=== PATIENT | female | born 1955 | race Caucasian/White ===

== ENCOUNTER → 2022-03-23 10:15 | Outpatient (CLI) | payer MEDICARE, SELFPAY ==
--- NOTE | 2022-03-23 10:19 | US_ITS ---
FINAL REPORT CLINICAL HISTORY: DYSPHAGIA,UNSPECIFIED FINDINGS: THYROID ULTRASOUND The right lobe of the thyroid measures 5.0 x 2.3 x 1.5 cm. The left lobe of the thyroid measures 4.4 x 1.9 x 1.2 cm. The parenchyma shows normal echogenicity. In the right lobe of the thyroid is a cystic, 3 x 3 x 2 mm TI-RADS 1 nodule. There is a 4 x 3 x 3 solid hypoechoic TI-RADS 4 nodule in the right lobe. In the left lobe is a 2 mm cystic nodule consistent with a TI-RADS 1. IMPRESSION: Small bilateral nodules. No follow-up recommended based on size criteria. Reviewed, Interpreted and Dictated by Dov Medina III, MD Transcribed by Ho Taylor Authenticated and [facility]
== END ==
PROVIDERS: PCP Nurse Practitioner; Visit Provider Nurse Practitioner
DX: R13.10 Dysphagia, unspecified (principal); G47.30 Sleep apnea, unspecified
CPT/HCPCS: 76536; 94762

== ENCOUNTER → 2022-03-24 09:17 | Outpatient (CLI) | payer MEDICARE, SELFPAY ==
[2022-03-24 09:35] LABS: Basophils # 0.1 K/mm3 (0-0.2); Basophils % 1.1 % (0.1-2.0); Eosinophils # 0.3 K/mm3 (0.0-0.4); Eosinophils % 3.9 % (0.1-12.0); Hematocrit 40.2 % (37.0-47.0); Hemoglobin 13.5 g/dL (12.2-16.2); Lymphocytes # 2.8 K/mm3 (0.7-4.5); Mean Corpuscular HGB Conc 33.6 g/dL (31.8-35.4); Mean Corpuscular Hemoglobin 31.9 pg (27.0-31.2); Mean Corpuscular Volume 94.9 fl (81-99); Mean Platelet Volume 6.6 fl (7.4-10.4); Monocytes # 0.6 K/mm3 (0.1-1.0); Monocytes % 7.8 % (1.7-9.3); Neutrophils # 4.2 K/mm3 (1.8-7.8); Neutrophils % 52.3 % (37.0-80.0); Platelet Count 318 K/mm3 (142-424); Red Blood Count 4.24 M/mm3 (4.20-5.40); Red Cell Distribution Width 12.3 % (11.5-17.5); White Blood Count 8.1 K/mm3 (4.8-10.8)
[2022-03-24 10:42] LABS: Alanine Aminotransferase 19 U/L (12-78); Albumin Level 3.7 g/dl (3.5-5.0); Albumin/Globulin Ratio 1.2 (1.1-1.8); Alkaline Phosphatase 104 U/L (38-126); Anion Gap 10.1 mEq/L (5-15); Aspartate Amino Transferase 27 U/L (14-36); Bilirubin,Total 0.2 mg/dl (0.2-1.3); Blood Urea Nitrogen 12 mg/dl (7-17); Calcium 9.4 mg/dl (8.4-10.2); Carbon Dioxide 27 mmol/L (22.0-30.0); Chloride 105 mmol/L (98-107); Chol/HDL Ratio 2.8 (1-3.5); Cholesterol 131 mg/dl (140-200); Estimated Glomerular Filt Rate 72 ml/min (>60); GFR (African American) 87 ML/MIN (>60); Globulin 3.1 g/dL (1.3-3.2); Glucose 98 mg/dl (74-100); HDL Cholesterol 47 mg/dl (40-60); Potassium 4.1 mmoL/L (3.5-5.1); Sodium 138 mmol/L (136-145); Total Protein,Serum 6.8 g/dl (6.3-8.2); Triglycerides 70 mg/dl (30-150); VLDL Cholesterol 14 mg/dL (0-40)
[2022-03-24 10:52] LABS: Direct LDL Cholesterol 68.14 mg/dL (100-129)
[2022-03-24 11:12] LABS: Thyroid Stimulating Hormone 1.73 uIU/mL (0.465-4.68)
[2022-03-24 11:48] LABS: Vitamin B12 370 pg/mL (239-931)
[2022-03-24 11:51] LABS: Folate > 20.00 ng/mL
[2022-03-25 14:15] LABS: Anti-Centromere B Antibodies <0.2 AI (0.0-0.9); Anti-DNA (DS) Ab Qn <1 IU/mL (0-9); Anti-Jo-1 <0.2 AI (0.0-0.9); Anti-Smith Antibody 0.3 AI (0.0-0.9); Antichromatin Antibodies <0.2 AI (0.0-0.9); Antiscleroderma-70 Antibodies <0.2 AI (0.0-0.9); RNP Antibodies <0.2 AI (0.0-0.9); Sjogren's Anti-SS-A 0.4 AI (0.0-0.9); Sjogren's Anti-SS-B <0.2 AI (0.0-0.9)
== END ==
PROVIDERS: PCP Nurse Practitioner; Visit Provider Specialist
DX: G47.30 Sleep apnea, unspecified (principal); G96.9 Disorder of central nervous system, unspecified; R07.9 Chest pain, unspecified; R25.1 Tremor, unspecified; Z68.32 Body mass index [BMI] 32.0-32.9, adult; Z72.0 Tobacco use
CPT/HCPCS: 36415; 80053; 80061; 82607; 82746; 84443; 85025; 86225; 86235

== ENCOUNTER → 2022-04-02 10:18 | Outpatient (CLI) | payer MEDICARE, SELFPAY ==
[2022-04-02 12:23] LABS: NT Pro Brain Natriuretic Pep. 171 pg/mL (0-125)
== END ==
PROVIDERS: PCP Nurse Practitioner; Visit Provider Internal Medicine Cardiovascular Disease
DX: R06.00 Dyspnea, unspecified (principal)
CPT/HCPCS: 36415; 83880

== ENCOUNTER → 2022-04-06 10:22 | Outpatient (CLI) | payer MEDICARE, SELFPAY | PROVIDERS: PCP Nurse Practitioner; Visit Provider Specialist | DX: R06.09 Other forms of dyspnea (principal) | CPT/HCPCS: 94762 ==

== ENCOUNTER → 2022-04-08 06:48 | Outpatient (CLI) | payer MEDICARE, SELFPAY ==
--- NOTE | 2022-04-08 06:49 | CA_ITS ---
APPROVED REPORT EXAM: Comprehensive 2D, Doppler, and color-flow Echocardiogram Manager Diversity: Seda Salazar RT(R) Ht: 5 ft 4 in Wt: 189lbs BSA: 1.91 BP: 167/101 mmHg Indications: CP, smoker, edema, SOB, FERREIRA, dizziness, ABN EKG 2D Dimensions LVOT 2.24 cm (M/F) 1.5-2.5 M-Mode Dimensions RVDd 2.39 cm (0.9-2.6) LA Diam 3.09 cm (1.9-4.0) LVDd 3.98 cm (3.5-5.7) Ao Diam 3.32 cm (2.0-3.7) LVDs 2.92 cm (3.5-5.7) IVSd 1.02 cm (0.6-1.1) PWd 0.99 cm (0.6-1.1) EF (Teich) 52.60% FS 26.60% EDV (Teich) 69.20 mL ESV (Teich) 32.80 mL LV Diastology E Decel Time 170.00 (160-240 msec) E/A Ratio 0.87 MED E' 6.50 (< 7 cm/sec) E'/MED E' Ratio 9.49 (>14) Mitral Valve MV E Max Al. 62.00 (40-130 cm/s) MV A Velocity 71.00 (40-130 cm/s) E/A Ratio 0.87 MV Decel. Time 170.00 (160-240 ms) MV PHT 50.00 ms Left Ventricle Left atrium is mildly enlarged, left ventricle is normal size, mild concentric left ventricular hypertrophy, estimated ejection fraction 55% with no regional wall motion abnormality, grade 1 diastolic dysfunction seen without tissue Doppler evidence of raise left atrial pressure. Right Ventricle Right atrium and right ventricle are mildly enlarged with normal contractility. Aortic Valve Aortic valve is grossly normal, there is no aortic stenosis or aortic insufficiency. Mitral Valve Mitral valve is grossly normal, there is trace mitral regurgitation. Tricuspid Valve Tricuspid grossly normal, there is trace tricuspid regurgitation, tricuspid regurgitation jet velocity is inadequate for calculation of the right ventricular systolic pressure. Pulmonic Valve Pulmonic valve is poorly visualized. Great Vessels Aortic root is normal size. Inferior vena cava is poorly visualized. Pericardium No significant pericardial effusion noted. Conclusion 1. Technically difficult study because of the patient factors and poor acoustic windows. 2. Mild biatrial enlargement, normal left ventricular size, mild concentric left ventricular hypertrophy, estimated ejection fraction 55% with no regional wall motion abnormality, grade 1 diastolic dysfunction seen without tissue Doppler evidence of reduced left atrial pressure. 3. Mildly enlarged right ventricle with normal contractility. 4. Trace mitral and tricuspid regurgitation. 5. No significant pericardial effusion noted. 6. Inferior vena cava is poorly visualized. Electronically signed by : Ivan Murrieta MD 04/09/2022 14:16:47
--- NOTE | 2022-04-08 06:49 | NM_ITS ---
APPROVED REPORT Exam: Nuclear Stress Test Indication: chest pain..short of breath..fatigue Patient Location: Outpatient Stress Tech: Rebecca Campos [place] Tech:ARNOLD Ansari RT(R)(N) Ht: 5 ft 4 in Wt: 189 lbs Bra Size: 38c HR: 72 bpm BP: 154/93 mmHg BSA: 1.91 m2 TID: 1.14 BMI: 32.4 History: chest pain..short of breath..fatigue Procedure: Patient received a 0.4 mg of intravenous Lexiscan, resting heart rate 72 bpm, resting blood pressure 154/93 mmHg, with Lexiscan maximum heart rate achived was 109 bpm which is Less than 85 85 % of the maximum predicted heart rate and blood pressure was 170/94 mmHg. With Lexiscan, patient denied any complaint of chest pain. Electrocardiogram Resting electrocardiogram shows sinus rhythm nonspecific ST-T changes, with Lexiscan there is less than 1.[address] segment depression noted from the baseline EKG. The EKG portion of the Lexiscan is nondiagnostic. Cardiac Stress and Resting SPECT Images: Cardiac Stress and Resting SPECT images were obtained using technetium 99m Myoview 32.8 mCi stress and 10.03 mCi at rest. Gated SPECT analysis of segmental wall motion and calculation of the ejection fraction also done. Prone images were also obtained. Cardiac stress and rest SPECT images show uniform myocardial activity without segmental perfusion abnormality, computer derived ejection fraction is 64% with no regional wall motion abnormality, right ventricle is normal size and contractility. Conclusion: 1. The EKG portion of the Lexiscan is nondiagnostic. 2. No scintigraphic evidence of reversible ischemia seen, computer derived ejection fraction 64% with no regional wall motion abnormality, right ventricle is normal size and contractility. 3. Normal Lexiscan Myoview study. Electronically signed by : Ivan Murrieta MD 04/09/2022 14:30:00
--- NOTE | 2022-04-08 06:49 | CA_ITS ---
APPROVED REPORT Exam: Pharmacologic Technologist: Rebecca Yang, Ht: 5 ft 4 in Wt: 189 lbs BSA: 1.91 m2 HR: 74 bpm BP: 154/93 mmHg Medical History Medications: Ropinirole,,,,, Imdur,,,,, RoSUVASTATIN,,,,, Hydroxyzine pamoate,,,,, Hydroxychlorine,,,,, Stress Test Details Test: LEXISCAN Reason for pharmacologic stress test: physical limitation. HR Resting HR: 72 bpm Max Heart Rate (APMHR): 154.321159 bpm Max HR Achieved: 109 bpm Target HR (85% APMHR): 130.179580 bpm % of APMHR: 70.78 Recovery HR: 95 bpm BP Resting BP: 154/93 mmHg Max BP: 170/94 mmHg Recovery BP: 143.0/94.0 mmHg ECG Resting ECG: NSR, NS ST abns Clinical Exercise duration: 04:00 min Highest Stage Achieved: Exercise capacity: 1.0 METs Stress ECG Conclusion Symptoms: Mild SOA, stomach discomfort. No CP. Arrhythmias/Ectopy: None ST-T Changes: Mild exaggeration of baseline abns. Conclusion: Non-diagnostic Lexiscan stress. Myoview images reported separately. Test Summary REST . . . . . . . Resting REST 03:20 . . 72 . 154/ 93 . . Stage 1 . . . . . . . Myoview Injected Stage 1 01:00 . . 108 . . . . Stage 2 01:00 . . 105 . 170/ 94 . . Stage 3 01:00 . . 99 . 149/ 94 . . Stage 4 01:00 . . 97 . 150/ 90 . Stop exercise at 04:00 RECOVERY 01:00 . . 97 . 153/ 94 . . RECOVERY 02:00 . . 93 . 155/ 89 . . RECOVERY 03:00 . . 89 . 143/ 94 . . RECOVERY 03:23 . . 92 . 143/ 94 . . Electronically signed by : Ivan Murrieta MD 04/09/2022 14:27:48
== END ==
PROVIDERS: PCP Nurse Practitioner; Visit Provider Internal Medicine Cardiovascular Disease
DX: R07.9 Chest pain, unspecified (principal); R94.31 Abnormal electrocardiogram [ECG] [EKG]
CPT/HCPCS: 78452; 93017; 93306; A9502; J2785

== ENCOUNTER → 2022-04-14 10:20 | Outpatient (CLI) | payer MEDICARE, SELFPAY ==
--- NOTE | 2022-04-14 10:21 | MR_ITS ---
FINAL REPORT CLINICAL HISTORY: evaluation for seizure memory loss and tremors 17 ml prohance given FINDINGS: Multiplanar MR imaging of the brain was performed without and with contrast. There is no evidence of intracranial hemorrhage or mass. No abnormal extra-axial fluid collection is seen. The ventricular size is within normal limits. There is no evidence of shift of the midline structures. The posterior fossa and brainstem have an unremarkable appearance. No area of abnormal restricted diffusion is identified. No abnormal contrast enhancement is seen. Normal major vessel vascular flow voids are noted. IMPRESSION: No acute intracranial abnormality identified. Reviewed, Interpreted and Dictated by Dov Medina III, MD Transcribed by Eulalia Brothers Authenticated and [facility]
== END ==
LOC: RAD 10:21
PROVIDERS: PCP Nurse Practitioner; Visit Provider Specialist
DX: G93.40 Encephalopathy, unspecified (principal)
CPT/HCPCS: 70553; A9576

== ENCOUNTER → 2022-07-15 09:33 | Outpatient (CLI) | payer MEDICARE, SELFPAY ==
--- NOTE | 2022-07-15 09:40 | XR_ITS ---
FINAL REPORT CLINICAL HISTORY: LOW BACK PAIN FINDINGS: LUMBAR SPINE Five views were obtained. There is no acute fracture. There are moderate hypertrophic changes at L1-2. There is minimal spondylolisthesis of L4 on L5. There is moderate facet sclerosis in the lower lumbar spine. There is no soft tissue abnormality. IMPRESSION: Degenerative changes without acute bony abnormality. Reviewed, Interpreted and Dictated by Chase Rincon MD Transcribed by Genesis Weber Authenticated and [facility]
== END ==
LOC: RAD 09:35
PROVIDERS: PCP Nurse Practitioner; Visit Provider Nurse Practitioner
DX: M54.50 Low back pain, unspecified (principal)
CPT/HCPCS: 72110

== ENCOUNTER → 2022-08-11 08:49 | Outpatient (CLI) | payer MEDICARE, SELFPAY ==
--- NOTE | 2022-08-11 09:21 | MM_ITS ---
PROCEDURE INFORMATION: Exam: MG Bilateral Screening 3D Mammography Exam date and time: 08/11/2022 9:26 AM Age: 67 years old Clinical indication: Screening examination TECHNIQUE: Imaging protocol: Bilateral Screening tomosynthesis and 2D mammography including computer-aided detection (CAD) when performed. COMPARISON: No relevant prior studies available. FINDINGS: MAMMOGRAPHY: Breast composition: There are scattered areas of fibroglandular density. Mass: Lobulated 1.4 cm mass containing a clip in the anterior third of the right upper outer quadrant. There are no prior studies for comparison. Architectural distortion: None. Calcifications: No suspicious calcifications. Asymmetric density: None. Skin thickening: None. Axillary adenopathy: None. IMPRESSION: An addendum will follow this report on prior films are made available. If there is no significant interval change in the size or appearance of a previously biopsied right-sided mass, annual bilateral mammographic screening will be recommended. If for what ever reason prior films cannot be retrieved within the next 2 business weeks, the patient will return for spot compression views of the right breast and right breast ultrasound for further evaluation. ASSESSMENT: BI-RADS Category 0: Incomplete- Need Additional Imaging Evaluation and/or Prior Mammograms for Comparison
--- NOTE | 2022-08-11 09:21 | XR_ITS ---
FINAL REPORT TECHNIQUE: Bone densitometry calculations of the lumbar spine and right hip were obtained. CLINICAL HISTORY: post menopausal FINDINGS: DEXA BONE DENSITY AXIAL SKELETON Using L1-4, the bone mineral density of the spine is 1.016 g/cm2, corresponding to T-score of -0.3. No these values may be falsely elevated secondary to hypertrophic changes. Using the right hip, the bone mineral density of the femoral neck is 0.641 g/cm2, corresponding to a T-score of -1.9. NOTE: T-score: Standard deviation compared with peak bone mass of young adult mean. *Following the recommendations of the International Society of Bone densitometry, classification of hip BMD is based on the lower of two T-scores; total hip or femoral neck. IMPRESSION: Diminished bone mineral density of the right hip consistent with osteopenia. FRAX 10 year fracture risk is 2.4% for a hip fracture and 10% for a major osteoporotic fracture. Reviewed, Interpreted and Dictated by Dov Medina III, MD Transcribed by Manasa Dunn Authenticated and [facility]
== END ==
PROVIDERS: PCP Nurse Practitioner; Visit Provider Nurse Practitioner
DX: Z12.31 Encounter for screening mammogram for malignant neoplasm of breast (principal); Z78.0 Asymptomatic menopausal state
CPT/HCPCS: 77063; 77067; 77080

== ENCOUNTER → 2022-09-14 08:35 | Outpatient (POV) | payer MEDICARE, SELFPAY ==
[2022-09-14 08:49] VITALS: BP 145/99; PULSE 99; RESP 20; O2SAT 98; BMI 32.8
--- NOTE | 2022-09-14 09:10 | EXP.PAIN.OV ---
HPI Data of Consult Patient: new to practice Consult date: 09/14/22 Requesting Physician: Tyler Fajardo CRNA Primary Care Provider: Jodie Dotson APRN Consult Narrative Reason for consult: Pain pain, low back pain, leg pain History of present illness: Ms. Peace is a 67 year old female who presents today as a new patient. She is a referral from Jodie Dotson's office. Today she rates her pain 8 out of 10. Patient states her pain is all in her hands from what she thinks is arthritis along with her low back that radiates into her bilateral hips and legs. Patient states this has been going on for years and progressively worsened over time. Patient denies any specific trauma or injury that started it. Patient does present today with her sister, Radha, who she states does better with memory and details. Patient sister does state that she was told from a infant that her tailbone was out of whack . Patient states she does have osteopenia as well as degenerative disc disease. Patient does describe this as a sharp achy sensation that is worse with increased activity. Patient does state she cannot tolerate prolonged sitting, standing, walking due to the severity of pain. Patient states that years ago she was also diagnosed with lupus of the skin. Patient denies any cardiac or kidney issues. Patient does states she is on isosorbide for her blood pressure and does well with this. Patient states that she does have urinary incontinence on a regular basis. Patient states she does typically use Tylenol or ibuprofen with some improvement of symptoms. Patient denies any use of creams or topicals. Patient has tried heat and ice. Patient has not been seen by physical therapy or chiropractor in the past. Patient is not on any scheduled medications. Her Matt is [phone]. It has been reviewed and appropriate. CC: Tyler Fajardo CRNA [facility] Disclaimer: The information contained in this section may have been updated after the patient was seen, as this information can be updated by other users. Medical History (Updated 09/14/22 @ 09:29 by Lesly Avendaño APRN) Anxiety Arthritis GERD (gastroesophageal reflux disease) Headache HLD (hyperlipidemia) HTN (hypertension) Lupus RLS (restless legs syndrome) Thyroid disease Family History (Updated 09/14/22 @ 08:56 by Saima Lara RN) Other No significant family history Social History (Updated 09/14/22 @ 08:56 by Saima Lara RN) Smoking Status: Current every day smoker tobacco type: cigarettes packs per day: 1 alcohol intake: never substance use type: denies use current occupational status: other Travel in the last 8 weeks: None household members: family housing: house Review of Systems Review of Systems Review of systems:: pertinent systems reviewed and negative unless documented below Review of systems (narrative): Review of Systems: General: No recent weight changes, no fever, no sleep disturbances Respiratory: No cough, no shortness of air, no recurring pulmonary infections Cardiovascular/peripheral vascular: No chest pain, no palpitations, no edema, no shortness of breath Gastrointestinal: No new onset incontinence, normal bowel movements reported Genitourinary: urinary incontinence with no new onset Musculoskeletal: Low back pain, hand pain, leg pain Psychiatric: [Normal mood/affect] Neurological: [Denies weakness in extremities], [denies balance issues] Meds Home Medications and Allergies Home Medications Medication Instructions Recorded Confirmed Type hydroxychloroquine 200 mg tablet 200 mg PO BID . 03/23/22 09/14/22 History hydroxyzine pamoate 25 mg capsule 25 mg PO TID PRN . 03/23/22 09/14/22 History isosorbide mononitrate 30 mg 30 mg PO DAILY blood pressure 03/23/22 09/14/22 History tablet,extended release 24 hr ropinirole 1 mg tablet 1 mg PO HS RLS 03/23/22 09/14/22 History rosuvastatin 40 mg tablet 40 mg PO DAILY Cholest
== END ==
PROVIDERS: PCP Nurse Practitioner; Visit Provider Nurse Anesthetist, Certified Registered
DX: M51.16 Intervertebral disc disorders with radiculopathy, lumbar region (principal); M32.9 Systemic lupus erythematosus, unspecified; M79.641 Pain in right hand; M79.642 Pain in left hand; M25.551 Pain in right hip; F17.210 Nicotine dependence, cigarettes, uncomplicated; M25.552 Pain in left hip
CPT/HCPCS: 99202; G0463

== ENCOUNTER → 2022-09-21 13:49 | Outpatient (CLI) | payer MEDICARE, SELFPAY ==
--- NOTE | 2022-09-21 13:54 | MM_ITS ---
PROCEDURE INFORMATION: Exam: US Right Breast, Complete MG Right Diagnostic Breast Tomosynthesis Exam date and time: 09/21/2022 2:38 PM Age: 67 years old Clinical indication: Patient recalled on the basis of a screening mammogram for further evaluation; Right breast; mass. PT stated she can not feel this area but did have a RT breast biopsy years ago TECHNIQUE: Imaging protocol: Complete ultrasound of all four quadrants of the Right breast and the retroareolar regions, including ultrasound of the axilla when performed. Right Diagnostic tomosynthesis and 2D mammography including computer-aided detection (CAD) when performed. Unilateral or bilateral exam. COMPARISON: MG MM DIG MAMM DX UNILAT RT CAD 09/21/2022 1:49 PM FINDINGS: MAMMOGRAPHY: Digital diagnostic spot compression views of the anterior third of the right upper outer quadrant demonstrates a persistent partially irregularly marginated mass containing a clip. There are no prior studies for comparison. ULTRASOUND: Sonographic images of the right breast including the retroareolar region, all 4 quadrants and the axilla demonstrates an irregularly marginated heterogeneous vertically oriented hypoechoic solid mass in the right 10 o'clock axis 3 cm from the nipple corresponding to the mass on mammography. It measures 1.1 x 0.8 x 1.3 cm in dimension. No other solid or cystic masses are noted. No acoustical shadowing. No skin thickening or axillary adenopathy. IMPRESSION: Suspicious mass in the right upper outer quadrant despite the presence of a clip suggesting prior biopsy. There are no prior studies available for comparison. Given the morphology of the finding, ultrasound-guided core biopsy is recommended for further evaluation ASSESSMENT: BI-RADS Category 4: Suspicious
== END ==
LOC: RAD 13:50
PROVIDERS: PCP Nurse Practitioner; Visit Provider Nurse Practitioner
DX: R92.8 Other abnormal and inconclusive findings on diagnostic imaging of breast (principal); N63.10 Unspecified lump in the right breast, unspecified quadrant
CPT/HCPCS: 76641; 77061; 77065; G0279

== ENCOUNTER → 2022-09-27 07:55 | Outpatient (CLI) | payer MEDICARE, SELFPAY ==
--- NOTE | 2022-09-27 08:02 | US_ITS ---
FINAL REPORT CLINICAL HISTORY: RT BREAST LUMP-- dr king FINDINGS: ULTRASOUND-GUIDED RIGHT BREAST CORE BIOPSY TECHNIQUE: Limited images were obtained to localize region of interest. The right breast was prepped in a routine sterile fashion and locally anesthetized with 1% lidocaine. Standard written informed consent was obtained. The biopsy needle was positioned within the outer periphery of the lesion. A total of 3 passes were made with a 18 gauge core biopsy needle. A biopsy marker clip was deployed in satisfactory position. Postbiopsy mammogram showed postbiopsy changes with clip in satisfactory position. Procedure was well tolerated . CONCLUSION: 1. Technically successful ultrasound guided core biopsy of right breast lesion as above. 2. Biopsy marker clip deployed Authenticated and [facility]
--- NOTE | 2022-09-27 08:04 | MM_ITS ---
FINAL REPORT CLINICAL HISTORY: . s/p bx, clip placement, right breast nodule FINDINGS: MAMMOGRAM RIGHT TECHNIQUE: Standard digital 2-D views COMPARISON: 08-11-22 DENSITY: There are scattered areas of fibroglandular density FINDINGS: Post biopsy marker clip is noted to be in satisfactory position immediately adjacent to a nodule in the right breast at 10:00. Postbiopsy changes are noted. IMPRESSION: Biopsy marker clip in good position abutting right breast nodule at 10:00 RECOMMENDATION: Pending histopathology evaluation Authenticated and [facility]
== END ==
LOC: RAD 07:55
PROVIDERS: PCP Nurse Practitioner; Visit Provider Nurse Practitioner
DX: N63.10 Unspecified lump in the right breast, unspecified quadrant (principal); R92.8 Other abnormal and inconclusive findings on diagnostic imaging of breast
CPT/HCPCS: 19083; 77065; 88305; 88342

== ENCOUNTER → 2022-10-11 14:40 | Outpatient (POV) | payer MEDICARE, SELFPAY ==
--- NOTE | 2022-10-11 14:44 | EXP.PAIN.SOA ---
[facility] Pain Management SOAP Note Subjective:: Patient is a pleasant 67-year-old female who presents today for MRI denial. We are currently treating the patient for degenerative disc disease of lumbar spine with lumbar radiculopathy symptoms, low back pain, hand pain, hip pain, lupus. Patient rates her pain a 9 out of 10. Patient denies any new trauma or injury. Patient denies any change in location or type of pain she experiences. Patient states she does have low back pain and bilateral hip pain that runs into her legs. Patient's sister, Radha, is with her today at her visit and she does states she does better with memory and details.? Patient's sister is the one who also transports her to any doctors visits. Patient continues to state her tailbone is out of whack and has been since .? Patient describes her pain as a sharp, achy sensation that is worse with increased activity.? Patient states she does typically use Tylenol or ibuprofen with minimal improvement.?Patient has tried heat and ice.? Patient's MRI was denied due to lack of physical therapy for 6 weeks. Patient is not on any scheduled medications.? Her Matt is [phone].? It has been reviewed and appropriate. Review of Systems: General: No recent weight changes, no fever, no sleep disturbances Respiratory: No cough, no shortness of air, no recurring pulmonary infections Cardiovascular/peripheral vascular: No chest pain, no palpitations, no edema, no shortness of breath Gastrointestinal: No new onset incontinence, normal bowel movements reported Genitourinary: No new onset incontinence Musculoskeletal: Low back pain, leg pain, hip pain Psychiatric: [Normal mood/affect] Neurological: [Denies weakness in extremities], [denies balance issues] Objective:: Physical Exam: General: Alert and oriented x3, no acute distress, pleasant and cooperative Lungs: Respirations even and unlabored, symmetrical chest expansion Eyes: PERRL Musculoskeletal: Flexion and extension of lumbar [spine] somewhat guarded secondary to pain, [antalgic gait noted] Neurological: Speech clear, no gross sensory deficit Assessment:: Degenerative disc disease of lumbar spine with lumbar radiculopathy symptoms, low back pain, hand pain, hip pain, lupus Plan:: Patient is experiencing significant pain in her low back and hips with radiating symptoms into her legs. Patient did have limited range of motion of her lumbar spine during today's visit. I will order physical therapy for the patient for her low back and hip pain. Patient will return to clinic in 1 month for reevaluation of symptoms and plan of care. Patient has been instructed to contact the clinic with any concerns before the next appointment. Dr. Armas has reviewed this note and agrees with this plan of care. This note was dictated using voice recognition software and make contain errors or omissions. [facility] Disclaimer: The information contained in this section may have been updated after the patient was seen, as this information can be updated by other users. Medical History (Updated 09/14/22 @ 09:29 by Lesly Avendaño APRN) Anxiety Arthritis GERD (gastroesophageal reflux disease) Headache HLD (hyperlipidemia) HTN (hypertension) Lupus RLS (restless legs syndrome) Thyroid disease Family History (Updated 09/14/22 @ 08:56 by Saima Lara RN) Other No significant family history Social History (Updated 09/14/22 @ 08:56 by Saima Lara RN) Smoking Status: Current every day smoker tobacco type: cigarettes packs per day: 1 alcohol intake: never substance use type: denies use current occupational status: retired Travel in the last 8 weeks: None household members: family housing: house
[2022-10-11 14:53] VITALS: BP 169/86; PULSE 91; RESP 20; O2SAT 96; BMI 31.6
== END ==
PROVIDERS: PCP Nurse Practitioner; Visit Provider Nurse Practitioner Family
DX: M51.16 Intervertebral disc disorders with radiculopathy, lumbar region (principal); M25.559 Pain in unspecified hip; M25.549 Pain in joints of unspecified hand
CPT/HCPCS: 99212; G0463

== ENCOUNTER → 2022-11-02 12:26 | Outpatient (CLI) | payer MEDICARE, SELFPAY ==
--- NOTE | 2022-11-02 12:39 | ECG_ITS ---
APPROVED REPORT Exam: Resting ECG HR:68 bpm ECG Measurements Heart Rate 68 AXES MA 165 P 30 QRSd 93 QRS 14 QT 379 T 30 QTc 396 Conclusion SINUS RHYTHM NORMAL ECG UNCONFIRMED REPORT Electronically signed by : Ramón Causey MD 11/02/2022 20:27:12
[2022-11-02 13:16] LABS: Basophils # 0.1 K/mm3 (0-0.2); Eosinophils # 0.2 K/mm3 (0.0-0.4); Eosinophils % 2.2 % (0.1-12.0); Hematocrit 41.7 % (37.0-47.0); Hemoglobin 13.3 g/dL (12.2-16.2); Lymphocytes # 2.2 K/mm3 (0.7-4.5); Lymphocytes % 28.8 % (10-50); Mean Corpuscular HGB Conc 31.8 g/dL (31.8-35.4); Mean Corpuscular Hemoglobin 31.5 pg (27.0-31.2); Mean Corpuscular Volume 98.8 fl (81-99); Mean Platelet Volume 7.3 fl (7.4-10.4); Monocytes # 0.7 K/mm3 (0.1-1.0); Monocytes % 8.6 % (1.7-9.3); Neutrophils # 4.5 K/mm3 (1.8-7.8); Neutrophils % 59.4 % (37.0-80.0); Platelet Count 325 K/mm3 (142-424); Red Blood Count 4.22 M/mm3 (4.20-5.40); Red Cell Distribution Width 13.1 % (11.5-17.5); White Blood Count 7.6 K/mm3 (4.8-10.8)
[2022-11-02 13:32] LABS: Chloride 108 mmol/L (98-107); Potassium 4.7 mmoL/L (3.5-5.1); Sodium 140 mmol/L (136-145)
[2022-11-02 13:35] LABS: Anion Gap 7.7 mEq/L (5-15); Blood Urea Nitrogen 13 mg/dl (7-17); Calcium 8.7 mg/dl (8.4-10.2); Carbon Dioxide 29 mmol/L (22.0-30.0); Estimated Glomerular Filt Rate 83 ml/min (>60); GFR (African American) 101 ML/MIN (>60); Glucose 96 mg/dl (74-100)
== END ==
LOC: LAB 12:27
PROVIDERS: PCP Nurse Practitioner; Visit Provider Surgery
DX: N63.0 Unspecified lump in unspecified breast (principal); R07.9 Chest pain, unspecified; Z01.818 Encounter for other preprocedural examination
CPT/HCPCS: 36415; 80048; 85025; 93005

== ENCOUNTER 2022-11-03 08:43 | Day surgery (SDC) | payer MEDICARE, SELFPAY ==
[2022-11-03] VITALS (11 sets, daily range): BP systolic 120–144; BP diastolic 69–93; PULSE 67–80; RESP 12–18; TEMP 36.1–43; O2SAT 94–98; BMI 32.4
--- NOTE | 2022-11-03 10:35 | P.PN_ITS ---
[facility] Disclaimer: The information contained in this section may have been updated after the patient was seen, as this information can be updated by other users. Medical History (Updated 11/03/22 @ 09:49 by Latia Jesus RN) Anxiety Arthritis Cyst of neck Edema GERD (gastroesophageal reflux disease) Headache History of back pain History of COVID-19 History of gastroesophageal reflux (GERD) HLD (hyperlipidemia) Lupus RLS (restless legs syndrome) Sinus headache Surgical History (Updated 11/03/22 @ 09:18 by Latia Jesus RN) H/O: hysterectomy History of right breast biopsy History of surgery Family History (Updated 11/03/22 @ 09:18 by Latia Jesus RN) Other Breast cancer Colon cancer Lung cancer Social History (Updated 11/03/22 @ 09:20 by Latia Jesus RN) Smoking Status: Current every day smoker tobacco type: cigarettes packs per day: 1 alcohol intake: never substance use type: denies use current occupational status: disabled Travel in the last 8 weeks: None household members: family housing: house [facility] Anesthesia Checklist Patient Identification Patient Identification: Arm Band and Verbal (Name & ) Structural Data Admitted From: Home Planned Operative Procedure/s: Right Breast Mass Excision Consent for Planned Operative Procedure(s) Verified: Yes Verified Documents: Surgical Consent NPO Status Verified Time NPO: 00:00 Chart Verification Results Verified: CBC, BMP and ECG Additional verifications Anesthesia Reactions: No Hx Blood Transfusions: No Blood Transfusion Reaction: No Airway Assessment C-Spine Mobility Assessed: Yes TMJ Mobility Assessed: Yes Dentition: Poor Dentition Neurological Assessment Level of Consciousness: Awake, Alert and Appropriate Anesthesia Plan Anesthesia Risk discussed: Yes ASA Class: II Anesthesia Type: General
--- NOTE | 2022-11-03 12:59 | MM_ITS ---
FINAL REPORT CLINICAL HISTORY: SURGICAL SPECIMEN RIGHT BREAST FINDINGS: WIRE LOCALIZATION PROCEDURE AND SURGICAL SPECIMEN RADIOGRAPH History: Abnormal breast biopsy. Breast lesion. Technique: Standard written informed consent was obtained. A superior to inferior approach was utilized. Grid localization was utilized to target the lesion of interest within the right breast which consisted of nodule and 2 adjacent biopsy marker clips. A localization needle was directed toward the target. Lateral imaging was then performed to adjust the depth of the needle appropriately. The wire was deployed. Post localization images show the hookwire to be in good proximity to the biopsy marker clips and lesion of the right breast. Specimen radiograph: The excised tissue contains the nodule of interest along with 2 associated biopsy marker clips in the localization hookwire. No abnormal calcifications are seen associated with the specimen. IMPRESSION: 1. Technically successful wire localization of lesion of the right breast 2. Specimen radiograph contains the lesion of interest, biopsy marker clips and localization wire Authenticated and ERN
--- NOTE | 2022-11-03 13:36 | P.OP_ITS ---
Date of procedure: 11/03/22 Pre-op Diagnosis:: Right breast mass Post-op Diagnosis:: Same Procedure performed:: Needle-localized excisional right breast mass Surgeon:: Lukas Abraham MD PARALEGAL INSTRUCTOR:: Kiran Mcfarland Anesthesia: LMA Estimated blood loss (mL): 25 Operative findings:: Marker clips noted on specimen radiograph Operative note:: After informed consent was obtained the patient was taken to the radiology department for localization needle placement. Please see separate report for detail. She was then transferred to the operating room and placed in the supine position. General anesthesia with laryngeal mask airway was achieved. Her right breast was prepped and draped in a sterile fashion. After infiltration local anesthetic an incision overlying the needle exit site was completed with scalpel. A combination of scalpel dissection, scissor dissection, and electrocautery was utilized to transect around the surrounding tissue to include the localization needle. The entire specimen was passed off for pathologic evaluation after specimen radiographs were obtained. Specimen radiograph did confirm marker clips to be in position. Electrocautery was utilized to achieve hemostasis. Metallic clips were placed along the wound base and margin. The inferior skin margin was noted to be exceptionally thin secondary to angulation needed for localization needle. This portion of skin was sharply excised with scalpel. Electrocautery was once again utilized to achieve hemostasis. The deep subcutaneous tissue was reapproximated with nondyed 2-0 Vicryl and skin was closed with 4-0 Monocryl in an interrupted fashion. Steri-Strips and a pressure dressing were applied. The patient was transferred to recovery in stable condition after removal of her laryngeal mask airway. Condition: stable Disposition: PACU Specimens:: Right breast mass Complications:: No immediate
--- NOTE | 2022-11-03 13:43 | EXP.ANES.I ---
[facility] Anesthesia Record Part I Anesthesia Record I Intake, IV Amount: 1,500 Estimated blood loss (mL): 50 Urine output (mL): 0 Blood Pressure: 135/83 SaO2: 97 Pulse Rate: 75 Respiratory Rate: 12 Temperature: 97 F Patient is:: Awake and Stable Stable to PACU at:: 13:40
--- NOTE | 2022-11-03 14:15 | SUR.PHASEI ---
1409- Report called to JARED Hernandez. 1410- Patient transported to post-op in stable condition. Left in the care of JARED Hernandez.
--- NOTE | 2022-11-03 17:29 | P.PN_ITS ---
[facility] Disclaimer: The information contained in this section may have been updated after the patient was seen, as this information can be updated by other users. Medical History (Updated 11/03/22 @ 09:49 by Latia Jesus RN) Anxiety Arthritis Cyst of neck Edema GERD (gastroesophageal reflux disease) Headache History of back pain History of COVID-19 History of gastroesophageal reflux (GERD) HLD (hyperlipidemia) Lupus RLS (restless legs syndrome) Sinus headache Surgical History (Updated 11/03/22 @ 09:18 by Latia Jesus RN) H/O: hysterectomy History of right breast biopsy History of surgery Family History (Updated 11/03/22 @ 09:18 by Latia Jesus RN) Other Breast cancer Colon cancer Lung cancer Social History (Updated 11/03/22 @ 09:20 by Latia Jesus RN) Smoking Status: Current every day smoker tobacco type: cigarettes packs per day: 1 alcohol intake: never substance use type: denies use current occupational status: disabled Travel in the last 8 weeks: None household members: family housing: house [facility] Anesthesia Checklist Patient Identification Patient Identification: Verbal (Name & ) Structural Data Admitted From: Inpatient Planned Operative Procedure/s: i/d r shoulder Consent for Planned Operative Procedure(s) Verified: Yes Additional verifications Anesthesia Reactions: No Hx Blood Transfusions: No Blood Transfusion Reaction: No Airway Assessment C-Spine Mobility Assessed: Yes TMJ Mobility Assessed: Yes Dentition: Poor Dentition Neurological Assessment Level of Consciousness: Awake, Alert and Appropriate Anesthesia Plan Anesthesia Risk discussed: Yes Anesthesia Plan: Verified ASA Class: III Anesthesia Type: General
--- NOTE | 2022-11-04 14:43 | EXP.ANES.II ---
[facility] Anesthesia Record Part II Anesthesia Record Part II Discharge Time: 14:10 Destination: Surgical Day Care (OP Surgery) PACU nurse assessment reviewed?: Yes Patient Condition:: Good Anesthesia Complications:: None Swallowing reflex intact?: Yes Cyanosis?: No Blood Pressure: 139/83 Pulse Rate: 74 Temperature: 97.1 F Mental Status: Alert & Oriented Pain level:: 0 Nausea and/or vomitting:: None Intake, IV Amount: 0
[2022-11-04 14:44] VITALS: BP 139/83; PULSE 74; TEMP 36.2
== END 2022-11-03 14:50 | disposition home or self-care (01) ==
PROVIDERS: PCP Nurse Practitioner; Visit Provider Surgery
DX: D24.1 Benign neoplasm of right breast (principal); Z79.899 Other long term (current) drug therapy; F17.210 Nicotine dependence, cigarettes, uncomplicated
CPT/HCPCS: 19125; 19281; 76098; 88307; 88342; 96374; J2405

== ENCOUNTER 2022-11-15 14:00 | Outpatient (RCR) | payer MEDICARE, SELFPAY ==
--- NOTE | 2022-10-18 14:45 | HMH.PTOPEV ---
PT Outpatient Evaluation Rehab PT Outpatient Evaluation Start: 10/18/22 13:29 Freq: Status: Active Protocol: Document 10/18/22 13:29 PDESERBRENDA (Rec: 10/18/22 14:44 PDESEROUX [id number]) E-signed By Tyler Gabriel, PT Outpatient Therapy Subjective History Subjective History Pt. is a 67 year old female whom presents to [facility] Outpatient Physical Therapy Services in [place] for the initial evaluation this date( 10/18/22) w/ c/o chronic and constant lumbar and bilateral hip P! of insidious onset for years now. Pt. reports her in 2020 and since then moved back to [place] with her sister. Pt. reports chronic history of LBP! that worsen w/ prolonged sitting and standing. Recent diagnostic imaing(radiograph) indicates a slipped disc per pt. report. Pt. denies having injections for current pathology. Current medications incldue medicine for restless leg syndrome and Lupus. PMH includes Lupus, Hyperlipidemia , OA, hx. of anterior pelvic region tumor removal, and restless leg syndrome. Chief Complaint Pain,Stiff,Paresthesia, Weakness Symptom Type Ache,Dull,Burning,Numbness, Shooting Symptoms Relieved By Rest/Positioning,OTC Meds Symptoms Aggravated By Sitting,Standing,Bending/ Stooping,Twisting,Walking, Lifting Prior Functional Limitations None Current Functional Limitations Lifting,Standing,Sitting, Recreation Activity,Walking, Bending/Stooping Symptom Description Constant but Variable Level of pain today (0-10) 4 Pain scale - at its best (0-10) 3 Pain scale - at its worst (0-10) 8 Lumbopelvic Eval Posture Thoracic Spine Posture Standing Position Neutral Lumbar Spine Posture Standing Position Neutral Assistive device Assistive Devices None / NA Gait Observation General Gait Pattern Observation No Deviations/Normal Palapation tenderness bilateral lumbar spinal tenderness Yes: L4/S1
== END 2022-12-17 07:45 | disposition home or self-care (01) ==
LOC: PT 14:00
PROVIDERS: PCP Nurse Practitioner; Visit Provider Nurse Practitioner Family
DX: M54.50 Low back pain, unspecified (principal); M25.552 Pain in left hip; M25.551 Pain in right hip
CPT/HCPCS: 97110; 97140; 97163

== ENCOUNTER → 2022-11-19 09:00 | Outpatient (POV) | payer MEDICARE, SELFPAY ==
[2022-11-19 09:13] VITALS: BP 144/84; PULSE 72; RESP 18; O2SAT 96; BMI 32.5
--- NOTE | 2022-11-19 09:24 | EXP.PAIN.SOA ---
[facility] Pain Management SOAP Note Subjective:: Patient is a pleasant 67-year-old female who presents today for follow-up. We are currently treating the patient for degenerative disc disease of lumbar spine with lumbar radiculopathy symptoms, low back pain, hand pain, hip pain, lupus. Today she rates her pain a 9 out of 10. Patient denies any new trauma or injury. Patient denies any change location or type of pain she experiences. This is a aching, throbbing sensation that is worse with increased activity. She has increased pain at her low back more prominent on the right side that does run into her right hip and leg. She states that the left is not as bad. She does state due to her pain she cannot tolerate prolonged standing, walking, sitting. She also states that walking up stairs is difficult. She does present today with her sister. She does state it interferes with her activity of daily living such as light housework. She has just completed her physical therapy sessions. She states she did have some improvement however she still continues to have daily aches and pains. She is not on any scheduled medications. Her Matt is [phone]. Its been reviewed and appropriate. Review of Systems: General: No recent weight changes, no fever, no sleep disturbances Respiratory: No cough, no shortness of air, no recurring pulmonary infections Cardiovascular/peripheral vascular: No chest pain, no palpitations, no edema, no shortness of breath Gastrointestinal: No new onset incontinence, normal bowel movements reported Genitourinary: No new onset incontinence Musculoskeletal: Low back pain, leg pain, right hip pain Psychiatric: [Normal mood/affect] Neurological: [Denies weakness in extremities], [denies balance issues] Objective:: Physical Exam: General: Alert and oriented x3, no acute distress, pleasant and cooperative Lungs: Respirations even and unlabored, symmetrical chest expansion Eyes: PERRL Musculoskeletal: Flexion and extension of lumbar [spine] somewhat guarded secondary to pain, [antalgic gait noted] extreme point tenderness at the right SI and right greater trochanteric bursa with positive right Karen's, Kary's, Gaenslen's, compression and distraction exam Neurological: Speech clear, no gross sensory deficit Assessment:: Degenerative disc disease of lumbar spine with lumbar radiculopathy symptoms, low back pain, hand pain, hip pain, lupus, sacroiliitis right-sided, right greater trochanteric bursitis Plan:: Patient is experiencing significant pain in her low back more prominent on the right side that does radiate into her right hip and leg. Patient did have limited range of motion of her lumbar spine with extreme point tenderness at her right SI and right greater trochanteric bursa. Patient also had a positive right Karen's, Kary's, Gaenslen's, compression and distraction exam. I have discussed with the patient that she may benefit from a right SI and right bursa injection. Risk and benefits were discussed with the patient and she would like to proceed forward with this plan of care. I will also resubmit for MRI without contrast of her lumbar spine. Patient has tried and failed conservative therapy such as oral medications, heat and ice, topicals, physical therapy, at home exercising and stretching for longer than 6 weeks. We will schedule her for a right SI and right bursa injection. Patient has been instructed to contact the clinic with any concerns before the next appointment. Dr. Armas has reviewed this note and agrees with this plan of care. This note was dictated using voice recognition software and make contain errors or omissions. [facility] Disclaimer: The information contained in this section may have been updated after the patient was seen, as this information can be updated by other users. Medical History Anxiety Arthritis Cyst of neck Edema GERD (gastroesophageal reflu
== END ==
PROVIDERS: PCP Nurse Practitioner; Visit Provider Nurse Practitioner Family
DX: M51.16 Intervertebral disc disorders with radiculopathy, lumbar region (principal); M46.1 Sacroiliitis, not elsewhere classified; M70.61 Trochanteric bursitis, right hip; M25.559 Pain in unspecified hip; M79.643 Pain in unspecified hand
CPT/HCPCS: 99212; G0463

== ENCOUNTER 2022-11-30 09:53 | Day surgery (SDC) | payer MEDICARE, SELFPAY ==
[2022-11-30 10:16] VITALS: BP 143/92; PULSE 73; RESP 18; TEMP 36.2; O2SAT 98; BMI 32.5
--- NOTE | 2022-11-30 10:35 | EXP.PAIN.PRO ---
Procedure Date: 11/30/22 Time: 10:25 Anesthesiologist:: Tyler Fajardo CRNA Complications:: None Pre-procedure Diagnosis:: Right sacroiliitis Post-procedure Diagnosis:: Same Indications for Procedure:: Very pleasant 67-year-old female that comes our clinic today for her initial right sacroiliac joint injection. Patient states she has difficulty lying on her right side. She has difficulty transitioning from sitting to standing. Upon examination she has extreme point tenderness over the right sacroiliac joint. She rates her pain 7/10. Procedure Details:: Procedure: Right sacroliliac joint injection under fluoroscopy Informed consent was obtained and the risk and benefits of the procedure were explained to the patient.~ The patient was taken to the procedure room and noninvasive monitors were placed including noninvasive blood pressure cuff and pulse oximeter.~ The patient was placed prone on the procedure table.~ The~ right hip was cleansed using Betadine as a cleansing solution.~ C-arm fluorosocpy was used to view the right SI joint.~ The skin and subcutaneous tissues were anesthetized using Lidocaine 1.5% and a 25-gauge needle.~ After this, a 22-gauge spinal needle was inserted under fluoroscopic guidance into the inferior aspect of the right SI joint.~ Omnipaque dye was injected and a good spread was seen throughout the joint.~ After this, approximately 5 mL of bupivacaine 0.25% and Depo-Medrol 40 mg was incrementally injected into the sacroiliac joint.~ The patient tolerated the procedure well with no complications.~ The patient was observed in the Pain Clinic, then discharged home neurologically intact.~ Plan and Disposition:: Patient was discharged without incident.
[2022-11-30 10:37] VITALS: BP 143/85; PULSE 70; RESP 18; O2SAT 98
[2022-11-30 10:40] VITALS: BP 155/100; PULSE 76; RESP 18; O2SAT 98
[2022-11-30 10:42] VITALS: BP 155/100; PULSE 76; RESP 18; O2SAT 98
== END 2022-11-30 10:37 | disposition home or self-care (01) ==
PROVIDERS: PCP Nurse Practitioner; Visit Provider Nurse Anesthetist, Certified Registered
DX: M46.1 Sacroiliitis, not elsewhere classified (principal)
CPT/HCPCS: 27096; 77002; G0260; J1040

== ENCOUNTER 2022-12-07 10:05 | Day surgery (SDC) | payer MEDICARE, SELFPAY ==
[2022-12-07 10:32] VITALS: BP 145/91; PULSE 73; RESP 18; TEMP 36.4; O2SAT 98; BMI 32.5
--- NOTE | 2022-12-07 10:48 | P.PCN_ITS ---
Procedure Date: 12/07/22 Time: 10:45 Anesthesiologist:: Tyler Fajardo CRNA Complications:: None Pre-procedure Diagnosis:: Right greater trochanteric bursitis Post-procedure Diagnosis:: Same. Indications for Procedure:: Patient is a very pleasant 67-year-old female that comes our clinic today for right trochanteric bursa injection. She has extreme point tenderness over the right trochanteric bursa area. Patient complains she is unable to lay on her right side due to the pain. Procedure Details:: Procedure: Right trochanteric bursa injection under fluoroscopy We then moved to the right trochanteric bursa.~ C-arm fluoroscopy was used to view the left greater trochanter.~ The skin and subcutaneous tissues overlying the right greater trochanter were anesthetized using lidocaine, 1.5% and a 25- gauge needle.~ After this, a 22-gauge spinal needle was inserted and advanced until it contacted the right greater trochanter.~ Dye was injected and good spread was seen throughout the right trochanteric bursa. After this, approximately 5 mL of bupivacaine, 0.25% and Depo-Medrol, 40 mg was incrementally injected into the right right trochanteric bursa.~ The patient tolerated the procedure well with no complications. Plan and Disposition:: Patient was discharged without incident.
[2022-12-07 10:55] VITALS: BP 131/77; PULSE 66; RESP 18; O2SAT 99
== END 2022-12-07 10:55 | disposition home or self-care (01) ==
PROVIDERS: PCP Nurse Practitioner; Visit Provider Nurse Anesthetist, Certified Registered
DX: M70.61 Trochanteric bursitis, right hip (principal)
CPT/HCPCS: 20610; 77002; J1040

== ENCOUNTER → 2022-12-23 08:12 | Outpatient (CLI) | payer MEDICARE, SELFPAY ==
--- NOTE | 2022-12-23 08:23 | MR_ITS ---
FINAL REPORT CLINICAL HISTORY: LOWER BACK PAIN. RIGHT HIP PAIN WITH PAIN, NUMBNESS AND TINGLING RADIATING DOWN RIGHT LEG. SYMPTOMS XYEARS. FINDINGS: Multiplanar MR imaging of the lumbar spine was performed without contrast. On the sagittal T2-weighted images, disc degeneration is seen throughout with mild anterolisthesis of L4 on 5. There are mild endplate changes at multiple levels. There is no evidence of fracture. The conus has an unremarkable appearance. T11-12: An annular bulge is present. There is no significant canal stenosis or neural foraminal narrowing. T12-L1: An annular bulge is present. Facet arthropathy and osteophytes are present. There is no significant canal stenosis or neural foraminal narrowing. L1-2: An annular bulge is present. Facet arthropathy and osteophytes are present. There is a right foraminal disc protrusion with severe right and moderate left neural foraminal narrowing. L2-3: An annular bulge and facet arthropathy are present. There is severe right and moderate left neural foraminal narrowing. L3-4: Facet arthropathy is present with mild bilateral neural foraminal narrowing. L4-5: An annular bulge and facet arthropathy are present with mild bilateral neural foraminal narrowing. L5-S1: An annular bulge and facet arthropathy are present. There is mild left neural foraminal narrowing. IMPRESSION: Right foraminal disc protrusion at L1-2 with severe right neural foraminal narrowing. Multilevel degenerative disc disease and spondylosis. Reviewed, Interpreted and Dictated by Dov Medina III, MD Transcribed by Eulalia Brothers Authenticated and [facility]
== END ==
LOC: RAD 08:13
PROVIDERS: PCP Nurse Practitioner; Visit Provider Nurse Practitioner Family
DX: M54.50 Low back pain, unspecified (principal)
CPT/HCPCS: 72148; 76376

== ENCOUNTER → 2023-01-03 09:12 | Outpatient (POV) | payer MEDICARE, SELFPAY ==
--- NOTE | 2023-01-03 09:29 | EXP.PAIN.SOA ---
[facility] Pain Management SOAP Note Subjective:: Patient is a pleasant 67-year-old female who presents today for follow-up of right trochanteric bursa injection on 12/07/2022. We are currently treating the patient for degenerative disc disease of lumbar spine with lumbar radiculopathy symptoms, low back pain, hand pain, hip pain, lupus. Today she rates her pain a 9 out of 10. She does state that she had approximately 50% improvement following this injection however only lasting about 2-1/2 weeks. She does states she is back to her baseline and states her pain is all in her low back along with her right hip. Patient denies any new trauma or injury. She states it is an aching, throbbing sensation that is worse with increased activity. It does interfere with ability to perform activities of daily living such as cooking and cleaning and that even ambulation is difficult. She does present today with her sister at her visit and states that she frequently has to take multiple breaks because she cannot tolerate walking long distances. She does just use [id number] medications such as Tylenol with minimal improvement. She has been doing physical therapy however she states she has not had any change in her pain symptoms or noticed any additional relief. She is not on any scheduled medications. Her Matt is [phone]. Its been reviewed and appropriate. Review of Systems: General: No recent weight changes, no fever, no sleep disturbances Respiratory: No cough, no shortness of air, no recurring pulmonary infections Cardiovascular/peripheral vascular: No chest pain, no palpitations, no edema, no shortness of breath Gastrointestinal: No new onset incontinence, normal bowel movements reported Genitourinary: No new onset incontinence Musculoskeletal: Low back pain, right hip pain Psychiatric: [Normal mood/affect] Neurological: [Denies weakness in extremities], [denies balance issues] Objective:: Physical Exam: General: Alert and oriented x3, no acute distress, pleasant and cooperative Lungs: Respirations even and unlabored, symmetrical chest expansion Eyes: PERRL Musculoskeletal: Flexion and extension of lumbar [spine] somewhat guarded secondary to pain, [antalgic gait noted] point tenderness noted around the L4-L5 region Neurological: Speech clear, no gross sensory deficit FINAL REPORT CLINICAL HISTORY: LOWER BACK PAIN. RIGHT HIP PAIN WITH PAIN, NUMBNESS AND TINGLING RADIATING DOWN RIGHT LEG. SYMPTOMS XYEARS. FINDINGS: Multiplanar MR imaging of the lumbar spine was performed without contrast. On the sagittal T2-weighted images, disc degeneration is seen throughout with mild anterolisthesis of L4 on 5.? There are mild endplate changes at multiple levels.? There is no evidence of fracture.? The conus has an unremarkable appearance. T11-12: An annular bulge is present.? There is no significant canal stenosis or neural foraminal narrowing.? T12-L1:? An annular bulge is present.? Facet arthropathy and osteophytes are present.? There is no significant canal stenosis or neural foraminal narrowing.? L1-2:? An annular bulge is present.? Facet arthropathy and osteophytes are present.? There is a right foraminal disc protrusion with severe right and moderate left neural foraminal narrowing.? L2-3:? An annular bulge and facet arthropathy are present.? There is severe right and moderate left neural foraminal narrowing.? L3-4:? Facet arthropathy is present with mild bilateral neural foraminal narrowing.? L4-5: An annular bulge and facet arthropathy are present with mild bilateral neural foraminal narrowing.? L5-S1: An annular bulge and facet arthropathy are present.? There is mild left neural foraminal narrowing. IMPRESSION: Right foraminal disc protrusion at L1-2 with severe right neural foraminal narrowing.? Multilevel degenerative disc disease and spondylosis. Reviewed, Interpreted and Dictated by Dov Medina III, MD Transcribed by Eulalia Vu
[2023-01-03 10:02] VITALS: BP 135/82; PULSE 81; RESP 18; O2SAT 97; BMI 32.5
== END ==
PROVIDERS: PCP Nurse Practitioner; Visit Provider Nurse Practitioner Family
DX: M51.16 Intervertebral disc disorders with radiculopathy, lumbar region (principal); M25.559 Pain in unspecified hip; M25.549 Pain in joints of unspecified hand
CPT/HCPCS: 99212; G0463

== ENCOUNTER → 2023-01-11 08:37 | Day surgery (SDC) | payer MEDICARE, SELFPAY ==
[2023-01-11 08:46] VITALS: BP 145/91; PULSE 82; RESP 18; TEMP 36.4; O2SAT 97; BMI 33.6
[2023-01-11 09:19] VITALS: BP 172/93; PULSE 89; RESP 18; O2SAT 97
[2023-01-11 09:21] VITALS: BP 172/93; PULSE 89; RESP 18; O2SAT 97
--- NOTE | 2023-01-11 09:51 | EXP.PAIN.PRO ---
Procedure Date: 01/11/23 Time: 09:40 Anesthesiologist:: Tyler Fajardo CRNA Complications:: None Pre-procedure Diagnosis:: Degenerative disc disease lumbar spine multilevels. Lumbar radiculopathy. Multilevel disc bulge lumbar spine. Lumbar spondylosis. Multilevel lumbar facet arthropathy. Post-procedure Diagnosis:: Same. Indications for Procedure:: Patient is a very pleasant 67-year-old female comes our clinic today for lumbar epidural steroid injection at L4-5 level. Patient complains of low back pain as well as bilateral hip and leg radicular symptoms. Her lumbar MRI shows multilevel disc bulge lumbar spine. Multilevel spondylosis lumbar spine. Multilevel degenerative disc lumbar spine. Procedure Details:: Procedure: Lumbar epidural steroid injection under fluoroscopy Informed consent was obtained and the risks and benefits of the procedure were explained to the patient. The patient was taken to the procedure room and noninvasive monitors placed, including noninvasive blood pressure cuff and pulse oximeter. The back was viewed using C-arm Fluoroscopy and prepped using Chloraprep as a cleansing solution and the L4-L5 interspace was palpated. Skin and subcutaneous tissues were anesthetized using lidocaine 1.5% and a 25-gauge needle. After this, an 18-gauge Touhy epidural needle was placed into the L4-L5 interspace and advanced using fluoroscopic guidance and loss of resistance to air until the epidural space was encountered. After confirmation of needle placement in the epidural space, with dye, a solution containing normal saline, 3 mL and Depo-Medrol 80 mg were incrementally injected into the lumbar epidural space. The patient tolerated the procedure well with no complications. The patient was observed in the Pain Clinic and then discharged home neurologically intact. Plan and Disposition:: Patient was discharged without incident.
== END | disposition home or self-care (01) ==
PROVIDERS: PCP Nurse Practitioner; Visit Provider Nurse Anesthetist, Certified Registered
DX: M51.16 Intervertebral disc disorders with radiculopathy, lumbar region (principal); M47.26 Other spondylosis with radiculopathy, lumbar region
CPT/HCPCS: 62323; J1040

== ENCOUNTER → 2023-01-26 08:51 | Outpatient (POV) | payer MEDICARE, SELFPAY ==
[2023-01-26 09:02] VITALS: BP 131/86; PULSE 91; RESP 18; O2SAT 97; BMI 33.6
--- NOTE | 2023-01-26 09:21 | EXP.PAIN.SOA ---
[facility] Pain Management SOAP Note Subjective:: Patient is a pleasant 67-year-old female who presents today for follow-up of lumbar epidural steroid injection of L4-L5 on 01/11/2023. We are currently treating the patient for degenerative disc disease of lumbar spine with lumbar radiculopathy symptoms, low back pain, hand pain, hip pain, lupus. Today she states that she has had approximately 30 to 50% improvement following this injection and feels that it is still providing additional relief. Patient states that she has been able to increase her activity however she does still notice her pain on a daily basis. She rates her pain a 8 out of 10. She denies any new trauma or injury. She denies any change location or type of pain she experiences. Patient does take [id number] Tylenol and ibuprofen to help with her symptoms. Patient denies any heart or kidney issues. Her Matt is [phone]. Its been reviewed and appropriate. Review of Systems: General: No recent weight changes, no fever, no sleep disturbances Respiratory: No cough, no shortness of air, no recurring pulmonary infections Cardiovascular/peripheral vascular: No chest pain, no palpitations, no edema, no shortness of breath Gastrointestinal: No new onset incontinence, normal bowel movements reported Genitourinary: No new onset incontinence Musculoskeletal: Low back pain Psychiatric: [Normal mood/affect] Neurological: [Denies weakness in extremities], [denies balance issues] Objective:: Physical Exam: General: Alert and oriented x3, no acute distress, pleasant and cooperative Lungs: Respirations even and unlabored, symmetrical chest expansion Eyes: PERRL Musculoskeletal: Flexion and extension of lumbar [spine] somewhat guarded secondary to pain, [antalgic gait noted] Neurological: Speech clear, no gross sensory deficit Assessment:: degenerative disc disease of lumbar spine with lumbar radiculopathy symptoms, low back pain, hand pain, hip pain, lupus Plan:: Patient is still getting some improvement from her lumbar epidural steroid injection. I will send in a prescription for meloxicam 7.5 mg daily and provide a 1 month supply of this medication. I have counseled the patient and her sister not to take any other NSAID products while taking this medication and to take it with food to minimize GI upset. Patient will return to clinic in 1 month for reevaluation of symptoms and plan of care. Patient has been instructed to contact the clinic with any concerns before the next appointment. Dr. Armas has reviewed this note and agrees with this plan of care. This note was dictated using voice recognition software and make contain errors or omissions. [facility] Disclaimer: The information contained in this section may have been updated after the patient was seen, as this information can be updated by other users. Medical History Anxiety Arthritis Cyst of neck Edema GERD (gastroesophageal reflux disease) Headache History of back pain History of COVID-19 History of gastroesophageal reflux (GERD) HLD (hyperlipidemia) Lupus RLS (restless legs syndrome) Sinus headache Surgical History H/O: hysterectomy History of right breast biopsy History of surgery TUMOR REMOVED LOWER ABDOMEN Family History Other Breast cancer Colon cancer Lung cancer Social History Smoking Status: Current every day smoker tobacco type: cigarettes packs per day: 1 alcohol intake: never substance use type: denies use current occupational status: retired Travel in the last 8 weeks: None household members: family housing: house
== END | disposition home or self-care (01) ==
PROVIDERS: PCP Nurse Practitioner; Visit Provider Nurse Practitioner Family
DX: M51.16 Intervertebral disc disorders with radiculopathy, lumbar region (principal); M79.643 Pain in unspecified hand; M25.559 Pain in unspecified hip
CPT/HCPCS: 99212; G0463

== ENCOUNTER 2024-02-14 10:25 | Outpatient (CLI) | payer MEDICARE, SELFPAY ==
--- NOTE | 2024-02-14 10:30 | MM_ITS ---
PROCEDURE INFORMATION: Exam: MG Bilateral Screening 3D Mammography Exam date and time: 02/14/2024 10:23 AM Age: 68 years old Clinical indication: Screening mammogram TECHNIQUE: Imaging protocol: Bilateral Screening tomosynthesis and 2D mammography including computer-aided detection (CAD) when performed. COMPARISON: 1. MG MM SURGICAL SPECIMEN RT 11/03/2022 12:47 PM 2. MG MM NEEDLE LOC RT 11/03/2022 9:31 AM 3. MG MM CLIP PLACEMENT RT 09/27/2022 8:26 AM 4. MG MM DIG MAMM DX UNILAT RT CAD 09/21/2022 1:49 PM FINDINGS: MAMMOGRAPHY: Breast composition: There are scattered areas of fibroglandular density. Mass: None. Architectural distortion: No new or suspicious architectural distortion. Calcifications: No new or suspicious calcifications are present Asymmetric density: No new or suspicious asymmetric density is present Skin thickening: None. Axillary adenopathy: None. Other findings: Postoperative findings are present within the right breast location of reported negative excisional biopsy 11/03/2022 IMPRESSION: No mammographic evidence of malignancy. Recommend annual screening mammography unless otherwise clinically indicated. ASSESSMENT: BI-RADS category 2: Benign.
== END 2024-02-14 23:59 | disposition home or self-care (01) ==
LOC: RAD 10:25
PROVIDERS: PCP Nurse Practitioner; Visit Provider Nurse Practitioner
DX: Z12.31 Encounter for screening mammogram for malignant neoplasm of breast (principal)
CPT/HCPCS: 77063; 77067

== ENCOUNTER 2024-11-27 09:50 | Emergency (ER) | payer MEDICARE, SELFPAY ==
[2024-11-27] VITALS (9 sets, daily range): BP systolic 109–170; BP diastolic 73–88; PULSE 66–83; RESP 15; TEMP 36.6; O2SAT 94–97; BMI 34.3
--- NOTE | 2024-11-27 10:16 | CT_ITS ---
FINAL REPORT TECHNIQUE: Thin section axial images are obtained through the abdomen and pelvis after intravenous contrast. Reconstruction images were obtained from the axial data. Exam was performed using dose reduction techniques. This study was performed with techniques to keep radiation doses as low as reasonably achievable (ALARA). Individualized dose reduction techniques using automated exposure control or adjustment of mA and/or kV according to the patient's size were employed. CLINICAL HISTORY: concern for periumb strangulated hernia COMPARISON: None FINDINGS: LUNG BASES: Left lower lobe atelectasis is present. Heart size is normal. LIVER: Homogeneous. No focal lesion. There is mild intrahepatic biliary ductal dilatation. GALLBLADDER/BILIARY SYSTEM: Mild gallbladder wall thickening is not excluded. No gallstones. SPLEEN: Unremarkable. PANCREAS: Unremarkable. ADRENALS: Unremarkable. KIDNEYS/URETERS/BLADDER: No hydronephrosis, renal mass, or renal stone. The left kidney is small, with cortical scarring. Unremarkable urinary bladder. GI TRACT: No small bowel obstruction or dilatation. The appendix is not identified, however there are no secondary signs of appendicitis. No acute colon abnormality. There is a small fat-containing umbilical hernia, which does not contain bowel. There is however abnormal attenuation within the herniated fat, and there may be a small amount of fluid as well. PELVIC ORGANS: The uterus is absent. LYMPH NODES/RETROPERITONEUM/MESENTERY: No lymphadenopathy. No abdominal aortic aneurysm. ABDOMINAL WALL: Small fat-containing umbilical hernia described above. There is also abnormal attenuation in the subcutaneous soft tissues, that may represent cellulitis. FREE FLUID: No ascites. BONES: No acute osseous abnormality. IMPRESSION: Small fat-containing umbilical hernia, which does not contain bowel, however there is abnormal attenuation within the hernia with a small amount of fluid. Incarceration is not excluded. There is abnormal attenuation in the subcutaneous soft tissues as well, that may represent cellulitis. Reviewed, Interpreted and Dictated by Charisma Jane MD Transcribed by Yazmin Garcia Authenticated and [facility]
[2024-11-27 10:22] LABS: Basophils % 0.5 % (0.1-2.0); Eosinophils # 0.1 K/mm3 (0.0-0.4); Eosinophils % 2.1 % (0.1-12.0); Hemoglobin 12.9 g/dL (12.2-16.2); Lymphocytes # 2.9 K/mm3 (0.7-4.5); Lymphocytes % 43.6 % (10-50); Mean Corpuscular HGB Conc 33.9 g/dL (31.8-35.4); Mean Corpuscular Hemoglobin 32.2 pg (27.0-31.2); Mean Corpuscular Volume 94.8 fl (81-99); Mean Platelet Volume 8.5 fl (7.4-10.4); Monocytes # 0.7 K/mm3 (0.1-1.0); Neutrophils # 2.9 K/mm3 (1.8-7.8); Neutrophils % 43.8 % (37.0-80.0); Platelet Count 207 K/mm3 (142-424); Red Blood Count 4.01 M/mm3 (4.20-5.40); Red Cell Distribution Width 11.7 % (11.5-17.5); White Blood Count 6.6 K/mm3 (4.8-10.8)
[2024-11-27] MEDS: KETOROLAC 30MG/ML VIAL 15 MG IV (10:28)
[2024-11-27 10:34] LABS: Lactic Acid 0.8 mmol/L (0.7-2.1)
--- NOTE | 2024-11-27 10:34 | HMH.EDGENADL ---
Discharge Plan Disposition Patient Disposition: Home, Self-Care Chief Complaint: Abdominal Pain Prescriptions Prescriptions: New doxycycline hyclate 100 mg capsule 100 mg PO BID 5 Days Qty: 10 0RF No Action hydroxyzine pamoate 25 mg capsule 25 mg PO TID PRN (Reason: .) Patient Comments: TAKE ONE CAPSULE BY MOUTH NEEDED FOR ANXIETY hydroxychloroquine 200 mg tablet 200 mg PO BID Patient Comments: TAKE ONE TABLET BY MOUTH TWICE DAILY isosorbide mononitrate 30 mg tablet extended release 24 hr 30 mg PO DAILY Patient Comments: TAKE ONE TABLET BY MOUTH EVERY DAY ropinirole 1 mg tablet 1 mg PO HS Patient Comments: TAKE ONE TABLET BY MOUTH ONE TO THREE HOURS BEFORE bedtime rosuvastatin 40 mg tablet 40 mg PO DAILY Patient Comments: take 1 tablet (40 mg) by oral route once daily omeprazole 40 mg capsule,delayed release(DR/EC) 40 mg PO QDAY Rx Instructions: swallow whole; do not crush, chew, dissolve, or cut/break metoprolol succinate [Toprol XL] 25 mg tablet extended release 24 hr 25 mg PO DAILY meloxicam 7.5 mg tablet 7.5 mg PO DAILY Qty: 30 0RF Referrals Follow up/Referrals: Jodie Dotson APRN [Primary Care Provider] - See instructions Activity Restrictions/Add. Instructions Additional Instructions/Restrictions: Doxycycline twice daily for 5 days. Call your family doctor to establish care for this visit to the emergency department and schedule follow-up within 48 hours to ensure improvement. If you have any worsening of your condition or any other concerning signs or symptoms, return to the emergency department or your primary care doctor for further evaluation. Clinical Impressions Clinical Impression: Abdominal pain, Periumbilical hernia Instructions Patient Instructions: DI for Acute Abdominal Pain Print Language Print Language: Macedonian Discharge ED Provider: Tommy Ramirez General Adult HPI General Chief complaint: Abdominal Pain Stated complaint: stomach pain, swollen Time Seen by Provider: 11/27/24 09:54 Mode of Arrival: Ambulatory Source of Information: Patient Description of Symptoms (Recalled from ER Triage Doc. by RN): patient states last tuesday she noticed a small hard area near her umbilicus that was tender to the touch and redness around her abdomen. she still reports she is having bowel movements and denies vomitting. History of Present Illness HPI narrative: Please note that above description of symptoms, in this electronic medical record under categorization of recalled from ER triage doctor by RN are reflective of an initial nursing assessment, however, is not reflective of my full history and physical exam that was personally taken and clarified. Consequentially, this preceding description of symptoms, which may include the patient's categorized chief complaint in the EMR, do not reflect my personal clinical impression, and the ultimate description of history of present illness and patient stated complaints should be deferred to this section of the note. Unless stated otherwise or congruent with this section of the note, additional signs, symptoms, or incongruence should be interpreted as inaccurate with my clinical impression. Related Data Home Medications ?Medication ?Instructions ?Recorded ?Confirmed hydroxychloroquine 200 mg tablet 200 mg PO BID . 03/23/22 02/09/23 hydroxyzine pamoate 25 mg capsule 25 mg PO TID PRN . 03/23/22 02/09/23 isosorbide mononitrate 30 mg 30 mg PO DAILY blood pressure 03/23/22 02/09/23 tablet,extended release 24 hr ropinirole 1 mg tablet 1 mg PO HS RLS 03/23/22 02/09/23 rosuvastatin 40 mg tablet 40 mg PO DAILY Cholesterol 03/23/22 02/09/23 metoprolol succinate 25 mg 25 mg PO DAILY blood pressure 09/14/22 02/09/23 tablet,extended release 24 hr (Toprol XL) omeprazole 40 mg capsule,delayed 40 mg PO QDAY GERD 09/14/22 02/09/23 release Previous Rx's ?Medication ?Instructions ?Recorded meloxicam 7.5 mg tablet 7.5 mg PO DAILY #30 tabs 01/26/23 doxycycline hyclate 100 mg capsule 100 mg PO BID 5 days #10 caps 11/27/24 Allergies Allergy/AdvReac Type Severity Reaction Status Date / Time No Known Allergies Allergy Verified 02/09/23 11:01 [facility] Disclaimer: The information contained in this section may have been updated after the patient was seen, as this information can be updated by other users. Medical History Anxiety Arthritis Cyst of neck Edema GERD (gastroesophageal reflux disease) Headache History of back pain History of COVID-19 History of gastroesophageal reflux (GERD) HLD (hyperlipidemia) Lupus RLS (restless legs syndrome) Sinus headache Surgical History H/O: hysterectomy History of right breast biopsy History of surgery TUMOR REMOVED LOWER ABDOMEN Family History Other Breast cancer Colon cancer Lung cancer Social History Smoking Status: Current every day smoker tobacco type: cigarettes packs per day: 1 alcohol intake: never substance use type: denies use current occupational status: retired Travel in the last 8 weeks: None household members: family housing: house Have you lived/traveled outside [place] in past 30 days?: No Contact w/someone who lives/traveled outside US past 30 days?: No Exposure to someone with infectious disease in past 14 days?: No Do you have a fever (greater than 100.4 F or 38 C)?: No Have you tested positive for COVID-19: No Exposed to someone with COVID-19 in past 14 days?: No Do you have a sore throat?: No Do you have a cough?: No Do you have any weakness?: No Do you have any diarrhea?: No Are you experiencing any unusual bleeding?: No Do you have any muscle aches/pain?: No Do you have any abdominal pain?: No Are you experiencing loss of taste or smell?: No Other Medical History Have you received the Flu Vaccine for this season: No Have you received the Pneumonia Vaccine: No ROS Obtained: Yes All systems reviewed & no additional complaints except as documented Physical Exam General General appearance: alert and in no apparent distress Head Head exam: atraumatic and normocephalic Eye Eye exam: Present normal appearance, PERRL and EOMI Neck Neck exam: Present normal inspection, full ROM and trachea midline Respiratory Respiratory exam: Present normal lung sounds bilaterally; Absent respiratory distress, wheezes, stridor, accessory muscle use or prolonged expiratory phase Cardiovascular Cardiovascular exam: Present regular rate, normal rhythm and other (Pulses equal symmetric in upper and lower extremities) Abdominal Exam Abdominal exam: Present soft and tenderness; Absent guarding, rebound, rigidity or pulsatile mass Comment: Periumbilical hernia that is firm with erythema and circumferential distribution around Extremities Exam Extremities exam: Absent edema Neurological Exam Neurological exam: Present alert, oriented X3 and CN II-XII intact; Absent motor sensory deficit Skin Skin exam: Present warm and dry; Absent diaphoresis or erythema Medical Decision Making Medical Records Medical records reviewed: Yes I reviewed the patient's medical records. Screening: Per USPSTF and CDC recommendations, given the prevalence of disease in our region, it is our hospital?s policy to screen for HIV and viral Hepatitis for all patients aged 18 and over and those with ongoing risk factors. Matt Inquiry Pt receiving controlled substance: No Matt was queried for this patient: No Vital Signs: 11/27/24 10:06 11/27/24 10:17 11/27/24 10:31 Temperature 97.9 F Temperature Source Oral Pulse Rate 81 75 Pulse Rate [Right] 83 Respiratory Rate 15 Blood Pressure 139/87 164/85 H Blood Pressure [Left Arm] 170/88 H Blood Pressure Mean [Left Arm] 115 Blood Pressure Source [Left Arm] Automatic Cuff Blood Pressure Position [Left Arm] Sitting 02 Sat by Pulse Oximetry 97 95 95 Oxygen Delivery Method Room Air 11/27/24 11:00 11/27/24 11:31 11/27/24 12:00 Temperature Temperature Source Pulse Rate 74 69 66 Pulse Rate [Right] Respiratory Rate Blood Pressure 141/79 H 126/73 127/73 Blood Pressure [Left Arm] Blood Pressure Mean [Left Arm] Blood Pressure Source [Left Arm] Blood Pressure Position [Left Arm] 02 Sat by Pulse Oximetry 95 95 97 Oxygen Delivery Method 11/27/24 12:30 Temperature Temperature Source Pulse Rate 68 Pulse Rate [Right] Respiratory Rate Blood Pressure 133/86 Blood Pressure [Left Arm] Blood Pressure Mean [Left Arm] Blood Pressure Source [Left Arm] Blood Pressure Position [Left Arm] 02 Sat by Pulse Oximetry 96 Oxygen Delivery Method Lab Data Lab Results 11/27/24 10:19: WBC 6.6, RBC 4.01 L, Hgb 12.9, Hct 38.0, MCV 94.8, MCH 32.2 H, MCHC 33.9, RDW 11.7, Plt Count 207, MPV 8.5, Neut % (Auto) 43.8, Lymph % (Auto) 43.6, [place] % (Auto) 10.0 H, Eos % (Auto) 2.1, Baso % (Auto) 0.5, Neut # (Auto) 2.9, Lymph # (Auto) 2.9, [place] # (Auto) 0.7, Eos # (Auto) 0.1, Baso # (Auto) 0.0, Sodium 137, Potassium 4.0, Chloride 106, Carbon Dioxide 27, Anion Gap 8.0, BUN 8, Creatinine 0.70, Estimated Creat Clear 76, Estimated GFR 83, Est GFR ( Amer) 100, Glucose 101 H, Lactate 0.8, Calcium 9.5, Total Bilirubin 0.5, AST 35, ALT 16, Alkaline Phosphatase 71, Total Protein 7.5, Albumin 4.3, Globulin 3.2, Albumin/Globulin Ratio 1.3, Lipase 134, HCV Ab EDGAR w/Rflx PCR Qn Negative, HIV Ag/Ab Combo Qual Negative 11/27/24 10:19 11/27/24 10:19 Orders (Tests/Meds): ED MEDICATIONS Generic Name Dose Route Start Last Admin Trade Name Freq PRN Reason Stop Dose Admin Doxycycline Hyclate 100 mg 11/27/24 13:00 Doxycycline Hycl 100 Mg Tablet PO 11/27/24 13:01 ONCE ONE Discontinued Medications Generic Name Dose Route Start Last Admin Trade Name Freq PRN Reason Stop Dose Admin Iopamidol 75 ml 11/27/24 10:52 11/27/24 10:53 Iopamidol-370 (76%);100ml Bottle IV 11/27/24 10:53 75 ml ONCE ONE Administration Ketorolac Tromethamine 15 mg 11/27/24 10:16 11/27/24 10:28 Ketorolac 30mg/Ml Vial IV 11/27/24 10:17 15 mg ONCE ONE Administration Sodium Chloride 10 ml 11/27/24 10:52 11/27/24 10:52 Sodium Chloride 0.9% 10ml Syr (Rad Only) IV 11/27/24 10:53 10 ml ONCE ONE Administration ORDERS Category Date Time Status CT abdomen pelvis w con Stat Cat Scan 11/27/24 10:16 Taken CBC w/Auto Diff [Complete Blood Count Auto Diff] Stat Lab 11/27/24 10:19 Completed CMP [Comprehensive Metabolic Panel] Stat Lab 11/27/24 10:19 Completed HIV Combo Stat Lab 11/27/24 10:19 Completed Hepatitis C Ab Qual. W/ RFX Stat Lab 11/27/24 10:19 Completed Lactic Acid Stat Lab 11/27/24 10:19 Completed Lipase Stat Lab 11/27/24 10:19 Completed Medical Decision Narrative: 69-year-old female history of hypertension, hyperlipidemia, CAD, systemic lupus erythematous, anxiety presenting with abdominal pain. She states that started having this abdominal pain a couple days prior to this. Starts epigastric, does not radiate. States that she still passing gas, last bowel movement was 2 days ago, she is unable to comment on whether or not this is normal for her and states I do not keep track. Has not taken anything for the pain. Currently mild in intensity, does not radiate, made worse with application of pressure. History was obtained via conversation with patient. On arrival, patient hemodynamically stable, alert, oriented x4, appropriate, GCS 15, moving all extremities spontaneously, pupils equal and reactive to light. Full physical exam performed and significant for clinically well-appearing female who is in no acute distress. Abdomen concerning. Periumbilical hernia that is firm with erythema and circumferential distribution around. Mild pain, no obvious peritonitis. Differential includes strangulated hernia, incarcerated hernia, cellulitis, abscess, pancreatitis, less likely to be mesenteric ischemia, among others. Patient placed on continuous cardiac monitoring and continuous pulse ox with initial blood pressure 170/88, heart rate 83, saturation 97% on room air. Patient was given Toradol for symptomatic management and correction of underlying abnormalities. Workup independently interpreted and significant for nonactionable CBC or chemistry. On independent interpretation of imaging, patient has umbilical fat containing hernia with surrounding erythema consistent with cellulitis of the abdominal wall. See radiology read for full review of final results. On reevaluation, patient states she is resting comfortably. Was given oral doxycycline to help with cellulitis. Given patient presentation, workup, history, this most likely represents abdominal wall cellulitis in the setting of fat-containing umbilical hernia. Because patient at baseline without signs or symptoms of clinical decompensation, deemed appropriate for discharge. Results were relayed to patient who voiced understanding and were agreeable to outpatient management and follow up. I discussed my clinical impression with patient and answered all questions. At this time, the evidence for any other entities in the differential is insufficient to warrant any further testing or ED observation. This was explained as well. Advisory was given that persistent or worsening symptoms require further evaluation. I confirmed the understanding of this discussion. Safety Physician disclaimer Much of this encounter note is an electronic flat sorter processor spoken language to printed text. Electronic flat sorter processor of the spoken language may permit errors. Although I have reviewed the note, some errors may still exist. Critical Care Critical Care Time Critical Care Time: No
[2024-11-27 10:35] LABS: Alanine Aminotransferase 16 U/L (12-78); Albumin Level 4.3 g/dl (3.5-5.0); Albumin/Globulin Ratio 1.3 (1.1-1.8); Alkaline Phosphatase 71 U/L (38-126); Aspartate Amino Transferase 35 U/L (14-36); Bilirubin,Total 0.5 mg/dl (0.2-1.3); Blood Urea Nitrogen 8 mg/dl (7-17); Calcium 9.5 mg/dl (8.4-10.2); Carbon Dioxide 27 mmol/L (22.0-30.0); Chloride 106 mmol/L (98-107); Creatinine Clearance Estimated 76 mL/min (50-200); Estimated Glomerular Filt Rate 83 ml/min (>60); GFR (African American) 100 ML/MIN (>60); Globulin 3.2 g/dL (1.3-3.2); Glucose 101 mg/dl (74-100); Lipase 134 U/L (23-300); Sodium 137 mmol/L (136-145); Total Protein,Serum 7.5 g/dl (6.3-8.2)
[2024-11-27] MEDS: SODIUM CHLORIDE 0.9% 10ML SYR (RAD ONLY) 10 ML IV (10:52)
[2024-11-27] MEDS: IOPAMIDOL-370 (76%);100ML BOTTLE 75 ML IV (10:53)
[2024-11-27 11:32] LABS: HIV Combo NEGATIVE (Negative)
[2024-11-27 11:40] LABS: Hepatitis C Ab Qual. W/ RFX NEGATIVE (Negative)
--- NOTE | 2024-11-27 13:03 | PC.NURSE ---
no blood cultures per MD Ramirez
[2024-11-27] MEDS: DOXYCYCLINE HYCL 100 MG TABLET PO (13:04)
== END 2024-11-27 13:16 | disposition home or self-care (01) ==
PROVIDERS: Emergency Provider Emergency Medicine; PCP Nurse Practitioner
DX: L03.311 Cellulitis of abdominal wall (principal); K42.9 Umbilical hernia without obstruction or gangrene; I10 Essential (primary) hypertension; I25.10 Atherosclerotic heart disease of native coronary artery without angina pectoris; R10.13 Epigastric pain; E78.5 Hyperlipidemia, unspecified; F41.9 Anxiety disorder, unspecified; M19.90 Unspecified osteoarthritis, unspecified site; K21.9 Gastro-esophageal reflux disease without esophagitis; M32.9 Systemic lupus erythematosus, unspecified; G25.81 Restless legs syndrome; F17.210 Nicotine dependence, cigarettes, uncomplicated; Z86.16 Personal history of COVID-19; Z98.890 Other specified postprocedural states; Z80.3 Family history of malignant neoplasm of breast; Z80.0 Family history of malignant neoplasm of digestive organs; Z80.1 Family history of malignant neoplasm of trachea, bronchus and lung
CPT/HCPCS: 74177; 80053; 83605; 83690; 85025; 86803; 87389; 96374; 99285; J1885; Q9967